=== PATIENT | female | born 1985 | race Caucasian/White ===

== ENCOUNTER 2020-12-24 14:07 | Emergency (ER) | payer MEDICAID ==
[~2020-12-24] VITALS: Ht 172.7 cm; Wt 57.0 kg
[2020-12-24 16:52] VITALS: BP 130/84
== END 2020-12-24 17:04 | disposition home or self-care (01) ==
LOC: ER 14:07
DX: Z86.19 Personal history of other infectious and parasitic diseases (principal)
CPT/HCPCS: 99281